=== PATIENT | female | born 1980 | race Caucasian/White ===

== ENCOUNTER 2018-12-19 09:40 | Emergency (ER) | payer OTHER ==
[2018-12-19 09:49] VITALS: BP 126/69
[2018-12-19] MEDS ORDERED: CHERRY SYRUP 10 ML UDC PO ONE (10:00)
[2018-12-19] MEDS ORDERED: MELOXICAM 7.5 MG TABLET PO STA (10:00)
[2018-12-19] MEDS ORDERED: DEXAMETHASONE 10 MG/ML VIAL PO STA (10:00)
[2018-12-19] MEDS ORDERED: CYCLOBENZAPRINE 10 MG TABLET PO STA (10:00)
--- NOTE | 2018-12-19 10:12 | ED Physician Documentation ---
History of Present Illness - Stated complaint Stated Complaint: BACK PX - Chief complaint Chief Complaint: Back Pain - History obtained from History obtained from: Patient, Family - History of Present Illness Timing: How many days ago (3) Pain level max: 8 Pain level now: 7 Improved by: bending over Worsened by: standing straight - Additonal information Additional information: 38-year-old female states that she has had back pain for several years. She states that it is worse with standing up straight, better when bending over such as pushing a shopping cart. Will radiate down the right leg occasionally. No loss of bowel or bladder control. No IV drug use. No fevers. No trauma. Review of Systems Constitutional: denies: Fever, Chills GI: denies: Nausea, Vomiting, Diarrhea : denies: Now EGA Skin: denies: Rash Musculoskeletal: denies: Neck pain Neurologic: denies: Focal weakness, Numbness, Headache PD PAST MEDICAL HISTORY - Past Medical History Past Medical History: No - Past Surgical History Past Surgical History: No - Present Medications Home Medications: Ambulatory Orders Medication Instructions Recorded Confirmed Cyclobenzaprine [Flexeril] 10 mg PO TID PRN #20 tablet 12/19/18 Meloxicam [Mobic] 15 mg PO DAILY PRN #20 tablet 12/19/18 predniSONE [Deltasone] 10 mg PO [id number] #42 tab 12/19/18 - Allergies Allergies/Adverse Reactions: Allergies Allergy/AdvReac Type Severity Reaction Status Date / Time No Known Drug Allergies Allergy Verified 12/19/18 09:48 - Social History Does the pt smoke?: No Smoking Status: Never smoker Does the pt drink ETOH?: No Does the pt have substance abuse?: No - Immunizations Immunizations are current?: Yes PD ED PE NORMAL - Vitals Vital signs reviewed: Yes - General General: Alert and oriented X 3, No acute distress - HEENT HEENT: Moist mucous membranes - Neck Neck: Supple, no meningeal sign - Cardiac Cardiac: RRR, Strong equal pulses - Respiratory Respiratory: No respiratory distress, Clear bilaterally - Abdomen Abdomen: Soft, Non tender, Non distended - Back Back: No spinal TTP, Other (No midline tenderness to palpation or percussion. No step-off or deformity. Mild paraspinal spasm to the right.) - Derm Derm: Warm and dry - Extremities Extremities: Other (Normal bilateral lower extremity patellar and ankle jerk reflexes. Normal great toe extension bilaterally. no saddle anesthesia) - Neuro Neuro: Alert and oriented X 3, No motor deficit, No sensory deficit Results - Vitals Vitals: Vital Signs - 24 hr 12/19/18 09:46 Temperature 36.8 C Heart Rate 78 Respiratory 18 Rate Blood Pressure 126/69 O2 Saturation 98 PD MEDICAL DECISION MAKING - ED course Complexity details: reviewed results, re-evaluated patient, considered differential (No cauda equina, no spinal epidural abscess, no fracture, no aortic dissection or evidence of aneursym rupture), d/w patient ED course: 38-year-old female with what appears to be sciatica and likely spinal stenosis. Will place on steroids and muscle relaxants for home. We will follow-up with her doctor for further evaluation and care. No evidence of cauda equina, epidural abscess. Patient counseled regarding signs and symptoms for which I believe and urgent re-evaluation would be necessary. Patient with good understanding of and agreement to plan and is comfortable going home at this time This document was made in part using voice recognition software. While efforts are made to proofread this document, sound alike and grammatical errors may occur. Departure - Departure Disposition: Home, Self Care Clinical Impression: Back pain Qualifiers: Back pain location: low back pain Chronicity: acute Back pain laterality: right Sciatica presence: with sciatica Sciatica laterality: sciatica of right side Qualified Code(s): M54.41 - Lumbago with sciatica, right side Spinal stenosis Qualifiers: Spinal region: unspecified Qualified Code(s): M48.00 - Spinal stenosis, site unspecified Condition: Good Instructions: ED Sciatica Follow-Up: Your,doctor in 1 week [Other] Prescriptions: Cyclobenzaprine [Flexeril] 10 mg PO TID PRN #20 tablet PRN Reason: Spasms Meloxicam [Mobic] 15 mg PO DAILY PRN #20 tablet PRN Reason: pain predniSONE [Deltasone] 10 mg PO [id number] #42 tab Comments: Do not drive or operate heavy machinery while on flexeril. You likely have a spinal stenosis, which is why it feels better when you were bending over. You should follow-up with your doctor for further care. You may benefit from a referral to a spine surgeon. An MRI of the spine can be obtained when your symptoms decrease to better characterize your spine. Return if you worsen
== END 2018-12-19 10:21 | disposition home or self-care (01) ==
LOC: ED 09:40
DX: M54.41 Lumbago with sciatica, right side (principal); M48.00 Spinal stenosis, site unspecified
CPT/HCPCS: 99283; A9270